=== PATIENT | male | born 1995 | race Caucasian/White ===

== ENCOUNTER 2019-11-29 16:08 | Emergency (ER) | payer MEDICAID ==
[~2019-11-29] VITALS: Ht 185.4 cm; Wt 70.8 kg
--- NOTE | 2019-11-29 16:25 | NUR ---
Pt came in due to SOB and coughing. Pt reports it started early this am around 0300 am. Pt ambulated back to room with a smooth and steady gait. Pt appears to be resting comfortably on gurney, call light on lap, NAD, denies additional needs at this time. P/W/D, FCS without SOB noted. MAEx4. WCTM.
--- NOTE | 2019-11-29 17:22 | NUR ---
Pt appears to be resting comfortably on gurney, call light on lap, NAD, denies additional needs at this time. P/W/D, FCS without SOB noted. MAEx4. WCTM. waiting for rad results.
[2019-11-29] MEDS ORDERED: wellbutrin PO (17:23)
[2019-11-29 18:17] VITALS: BP 120/68
--- NOTE | 2019-11-29 18:19 | NUR ---
Patient/Caregiver given discharge instructions and they have confirmed that they understand the instructions. Patient ambulatory with steady gait. Pt denies additional questions at this time.
== END 2019-11-29 18:21 | disposition home or self-care (01) ==
LOC: ED 17:06
DX: B34.9 Viral infection, unspecified (principal); R05 Cough; Z87.891 Personal history of nicotine dependence
CPT/HCPCS: 36415; 71045; 83615; 99284